=== PATIENT | female | born 1960 ===

== ENCOUNTER → 2024-03-29 13:27 | Outpatient (CLI) | payer OTHER ==
[2024-03-29 14:43] LABS: CREATININE SERUM 0.7 mg/dL (0.55-1.02); GFR 84.51
== END | disposition home or self-care (01) ==
LOC: LAB 13:27
PROVIDERS: ATTEND Radiology Diagnostic Radiology
DX: M48.02 Spinal stenosis, cervical region (principal)

== ENCOUNTER 2024-04-05 10:03 | Outpatient (CLI) | payer OTHER | END 2024-04-05 10:08 | disposition home or self-care (01) | LOC: MRI 10:03 | PROVIDERS: ATTEND Neurological Surgery | DX: M54.2 Cervicalgia (principal); M48.02 Spinal stenosis, cervical region; I66.09 Occlusion and stenosis of unspecified middle cerebral artery | CPT/HCPCS: 70544; 70551 ==